=== PATIENT | female | born 1990 | race Caucasian/White ===

== ENCOUNTER 2016-06-23 16:50 | Observation (INO) | payer OTHER ==
[~2016-06-23] VITALS: Ht 170.2 cm; Wt 65.8 kg
[2016-06-23 20:13] LABS: Basophils # (auto) 0.1 uL; Basophils % (auto) 0.5 % (0.0-2.0); Eosinophils # (auto) 0.1 uL; Eosinophils % (auto) 0.4 % (0.0-7.0); Hematocrit 51.9 % (36.0-46.0); Hemoglobin 17.4 g/dL (12.2-16.2); Lymphocytes # (auto) 3.5 uL; Lymphocytes % (auto) 21.2 % (10.0-50.0); Mean Corpuscular Hemoglobin 30.9 pg (28.0-32.0); Mean Corpuscular Hgb Conc. 33.6 g/dL (32.0-36.0); Mean Corpuscular Volume 92.1 fL (80.0-100.0); Mean Platelet Volume 8.2 fL (7.4-10.4); Monocytes # (auto) 1.3 uL; Neutrophils # (auto) 11.7 uL; Neutrophils % (auto) 69.9 % (37.0-80.0); Platelet Count (auto) 354 10^3/uL (140-450); Red Cell Distribution Width 13.4 % (11.6-16.0); White Blood Cell 16.7 10^3/uL (4.4-10.8)
[2016-06-23 20:33] LABS: Albumin 5.2 g/dL (3.4-5.0); Anion Gap 16 (5-15); Carbon Dioxide 20 mmol/L (21-32); Chloride 97 mmol/L (98-107); Glucose 107 mg/dL (74-106); Potassium 3.2 mmol/L (3.5-5.1); Sodium 133 mmol/L (136-145)
[2016-06-23 20:35] LABS: Aspartate Aminotransferase 31 U/L (15-37); GFR African American 52 mL/min; GFR Non-African American 43 mL/min
[2016-06-23 20:41] LABS: Salicylate < 1.7 mg/dL (2.8-20.0)
[2016-06-23 20:48] LABS: Acetaminophen < 2.0 ug/mL (10-30); Alkaline Phosphatase 81 U/L (45-117); BUN/Creatinine Ratio 14.6; Bilirubin, Total 2.2 mg/dL (0.2-1.0); Blood Urea Nitrogen 23 mg/dL (7-18); Total Protein 9.4 g/dL (6.4-8.2)
[2016-06-24] MEDS ORDERED: diphenhdrAMINE HCL 25 MG CAP PO PRN (01:00)
[2016-06-24] MEDS ORDERED: HALOPERIDOL 5 MG TAB PO PRN (01:00)
[2016-06-24] MEDS: LORazepam 0.5 MG TAB PO PRN (03:31)
[2016-06-24] MEDS ORDERED: LORazepam 2MG/ML-1ML VIAL ONE (07:48)
[2016-06-24] MEDS ORDERED: SODIUM CHLORIDE 0.9% 2,000 ML IV ONE (08:00)
[2016-06-24] MEDS ORDERED: cefTRIAXone 1GM/50ML D5W 50 ML IV ONE (08:00)
[2016-06-24] MEDS ORDERED: LORazepam 2MG/ML-1ML VIAL IV ONE ×3 (08:00→14:00)
[2016-06-24 08:07] LABS: Urine Bilirubin Negative (Negative); Urine Blood Negative /uL (Negative); Urine Color Yellow (Yellow); Urine Glucose Normal (Normal); Urine Mucus FEW (None Seen); Urine Nitrite Negative (Negative); Urine RBC 1 /hpf (0 - 4); Urine Squamous Epithelial Cell FEW /hpf (<5); Urine Urobilinogen Normal (Negative); Urine pH 5.5 (5.0-8.0)
[2016-06-24 08:10] LABS: Urine Ketone 1+ (Negative)
[2016-06-24] MEDS ORDERED: SODIUM CHLORIDE 0.9% 1,000 ML IV ONE (15:01)
[2016-06-24 15:41] LABS: Basophils # (auto) 0 uL; Basophils % (auto) 0.4 % (0.0-2.0); Eosinophils # (auto) 0.2 uL; Eosinophils % (auto) 1.9 % (0.0-7.0); Hematocrit 42.1 % (36.0-46.0); Hemoglobin 14.1 g/dL (12.2-16.2); Lymphocytes # (auto) 2.2 uL; Lymphocytes % (auto) 22.8 % (10.0-50.0); Mean Corpuscular Hemoglobin 31.1 pg (28.0-32.0); Mean Corpuscular Hgb Conc. 33.5 g/dL (32.0-36.0); Mean Corpuscular Volume 92.7 fL (80.0-100.0); Mean Platelet Volume 8.1 fL (7.4-10.4); Neutrophils # (auto) 6.3 uL; Neutrophils % (auto) 64.9 % (37.0-80.0); Platelet Count (auto) 268 10^3/uL (140-450); Red Cell Distribution Width 12.9 % (11.6-16.0); White Blood Cell 9.7 10^3/uL (4.4-10.8)
[2016-06-24 16:00] LABS: Albumin 3.4 g/dL (3.4-5.0); BUN/Creatinine Ratio 19.1; Calcium 8.2 mg/dL (8.5-10.1); Potassium 3.3 mmol/L (3.5-5.1)
[2016-06-24 16:02] LABS: Bilirubin, Total 1.2 mg/dL (0.2-1.0); Total Protein 6.8 g/dL (6.4-8.2)
[2016-06-25] MEDS: LORazepam 0.5 MG TAB PO PRN ×4 (00:28→23:56)
[2016-06-25] MEDS: traZODone HCL 50 MG TAB PO PRN ×2 (00:28→23:56)
[2016-06-25] MEDS ORDERED: LORazepam 0.5 MG TAB ONE (23:35)
[2016-06-25] MEDS ORDERED: traZODone HCL 50 MG TAB ONE (23:36)
[2016-06-26] MEDS ORDERED: LORazepam 0.5 MG TAB ONE (09:08)
[2016-06-26] MEDS: LORazepam 0.5 MG TAB PO PRN ×2 (09:24→21:18)
[2016-06-26] MEDS ORDERED: ONDANSETRON ODT 4 MG TAB PO ONE (09:30)
[2016-06-26] MEDS: traZODone HCL 50 MG TAB PO PRN (21:18)
[2016-06-27] MEDS: LORazepam 0.5 MG TAB PO PRN (12:01)
[2016-06-27] MEDS ORDERED: traZODone HCL 50 MG TAB ONE (21:46)
[2016-06-27] MEDS ORDERED: HALOPERIDOL 5 MG TAB ONE (21:46)
[2016-06-27] MEDS: traZODone HCL 50 MG TAB PO PRN (21:56)
[2016-06-28] MEDS: LORazepam 0.5 MG TAB PO PRN (10:40)
[2016-06-28 11:54] VITALS: BP 118/68
== END 2016-06-28 15:05 | disposition home or self-care (01) | DRG 756 ==
LOC: ER 16:54 → OVERFLOW 06-24 07:58 → ER 06-28 15:05
PROVIDERS: ADMIT Emergency Medicine; ATTEND Emergency Medicine
DX: R45.851 Suicidal ideations (principal); F32.9 Major depressive disorder, single episode, unspecified; F20.9 Schizophrenia, unspecified
CPT/HCPCS: 36415; 80053; 80320; 80329; 81001; 84702; 85025; 96361; 96365; 96375; 96376; G0378; G0434; J0696; Q0162